=== PATIENT | male | born 1940 | race Caucasian/White ===

== ENCOUNTER 2016-06-08 16:42 | Emergency (ER) | payer MEDICARE, BC ==
[~2016-06-08] VITALS: Ht 182.9 cm; Wt 75.0 kg
[~2016-06-08 16:42] MED LIST: AMIO200 PO; APIX5TAB PO; DIOV80TA4 PO; LORTA5 PO; OXYB5TAB33 PO; PACE200T4 PO; PRIL40CA PO; ROSU20 PO; TAB-TAB PO; TAMS0.4C67 PO
[2016-06-08 16:44] VITALS: BP 101/62; PULSE 72; RESP 16; TEMP 97.6; O2SAT 98
[2016-06-08 16:56] VITALS: BP 132/67; PULSE 68; RESP 18; TEMP 97.8; O2SAT 100
[2016-06-08] MEDS ORDERED: PRIL20CA9 PO (17:08)
[2016-06-08] MEDS ORDERED: DIOV80TA4 PO (17:08)
[2016-06-08] MEDS ORDERED: AMIO200T PO (17:08)
[2016-06-08] MEDS ORDERED: TAMS5CAP PO (17:08)
[2016-06-08] MEDS ORDERED: OXYB5TAB10 PO (17:08)
[2016-06-08] MEDS ORDERED: ROSU40 PO (17:08)
[2016-06-08] MEDS ORDERED: APIX5TAB PO (17:08)
[2016-06-08] MEDS ORDERED: SILVER NITR/POTASSIUM NITRATE APPLICATORS TOPICAL ONE (17:15)
--- NOTE | 2016-06-08 17:21 | PD ---
HPI Chief Complaint: Bleeding Time Seen by Provider: 16:53 Travel History International Travel<30 days: No Contact w/Intl Traveler<30days: No Traveled to known affect area: No History of Present Illness HPI This patient complains of nosebleed. Started at 3:30. It has for the most part stopped spontaneously but has a faint trickle from the left nostril. No bleeding from the right side. No injury. He does take blood thinners for A. fib chronically but no change in dose. Severity is mild. No presacral symptoms. Duration 30 minutes PFSH Past Medical History Hx Anticoagulant Therapy: Yes Arthritis: Yes (BACK) Autoimmune Disease: No Blood Disorders: No Heart Rhythm Problems: Yes Cancer: Yes (MELANOMA-LEFT EAR) Cardiovascular Problems: Yes Chemotherapy: No Chest Pain: Yes Diabetes: No Endocrine: No Gastrointestinal Disorders: Yes GERD: Yes Genitourinary: Yes Immune Disorder: No Implanted Vascular Access Dvce: Yes Musculoskeletal: Yes Neurologic: No Psychiatric: No Reproductive: No Respiratory: Yes (CHRONIC SINUSITIS) Myocardial Infarction: Yes Radiation Therapy: No Thyroid Disease: No Past Surgical History AICD: Yes (MEDTRONIC) Cardiac Surgery: Yes (CARDIAC CATH WITH STENTS-1995; AICD-2005) Ear Surgery: Yes (LEFT EAR MELANOMA EXCISION) Eye Surgery: Yes (ANISHA. CATARACT EXTRACTION WITH IOL's) Genitourinary Surgery: Yes (CYSTO- PROSTATE BIOPSY) Pacemaker: Yes (MEDTRONIC) Other Surgery: Yes Social History Alcohol Use: Yes (OCCAS.) Tobacco Use: No Substance Use: No Allergies-Medications (Allergen,Severity, Reaction): Coded Allergies: No Known Allergies (Verified , 11/07/14) Reported Meds & Prescriptions Reported Meds & Active Scripts Active Cordarone 200 Mg Tab (Amiodarone HCl) 200 Mg Tab 400 Mg PO BID 5 Days Reported Kipling 5/325 (Hydrocodone/Acetaminophen 5/325) 5 mg/325 mg Tab 1 Tab PO Q4H PRN 11/10/2014-Take Kipling 5 one or two tablets every 4-6 hours prn pain Pacerone 200 mg (Amiodarone HCl) 200 Mg Tab 1 Tab PO DAILY 07/06/15 please take amiodarone 400 mg twice a day for 5 days then continue taking amiodarone 200 mg a day Diovan 80 mg (Valsartan) 80 Mg Tab 80 Mg PO BID Eliquis (Apixaban) 5 Mg Tab 5 Mg PO BID Flomax (Tamsulosin HCl) 0.4 Mg Cap 0.4 Mg PO DAILY Crestor (Rosuvastatin Calcium) 20 Mg Tab 40 Mg PO DAILY Multivitamin (Multivitamins) 1 Tab Tab 1 Tab PO DAILY Ditropan (Oxybutynin Chloride) 5 Mg Tab 10 Mg PO DAILY Prilosec 40 mg cap (Omeprazole) 40 Mg Cap 40 Mg PO DAILY Review of Systems General / Constitutional: No: Fever Eyes: No: Visual changes HENT: Positive: Nosebleed, No: Headaches Cardiovascular: No: Chest Pain or Discomfort Respiratory: No: Shortness of Breath Gastrointestinal: No: Abdominal Pain Genitourinary: No: Dysuria Musculoskeletal: No: Pain Skin: No Rash Neurologic: No: Weakness Psychiatric: No: Depression Endocrine: No: Polydipsia Hematologic/Lymphatic: No: Easy Bruising Physical Exam Narrative CARDIOVASCULAR: Regular rate and rhythm without murmur. Extremities showed no edema or varicosities. NECK: Symmetrical appearance, midline trachea. No mass or crepitus. Thyroid without enlargement, tenderness, or mass. SKIN: Inspection shows no rash or ulcers. Palpation shows no induration or nodules. Throat clear Right nares is clear Left side shows a very scant trickle of blood from Kiesselbach's plexus Data Data Last Documented VS Vital Signs Date Time Temp Pulse Resp B/P Pulse Ox O2 Delivery O2 Flow Rate FiO2 06/08/16 17:02 69 20 99 Room Air 06/08/16 16:56 97.8 132/67 Orders Silver Nitrate Applicators (Silver Nitra (06/08/16 17:15) MDM Medical Decision Making Medical Screen Exam Complete: Yes Emergency Medical Condition: Yes Medical Record Reviewed: Yes Differential Diagnosis Anticoagulation, mucosal lesion, nasal trauma Narrative Course I have reviewed the patient's electronic medical record. Procedure note: Reviewed options with patient and he agrees to silver nitrate cautery. I used a total of 7 over nitrate sticks to cauterize the left nares. I rolled each taken sequence over the raw mucosa. There was slight transient irritation but tolerated well. There is no bleeding at all now. The patient has any further bleeding through the night I am advising hold off on his blood thinner in the morning. He has no further bleeding he will continue his blood thinner but will discuss with his physician at nearest opportunity. We discussed the risk benefit analysis involved including increased stroke risk from A. fib without blood thinner versus risk of further bleeding Diagnosis Primary Impression: Arterial epistaxis Additional Impressions: Anticoagulation adequate with anticoagulant therapy Atrial fibrillation Qualified Code: I48.0 - Paroxysmal atrial fibrillation Additional Instructions: The patient was advised to follow up with their physician and return if they worsen. Discuss risks of further bleeding versus higher risk of stroke when blood thinners stopped with prescribing physician Med/Other Pt SpecificInfo: Other Disposition: 01 DISCHARGE HOME Condition: Stable Gabino Santos MD Jun 08, 2016 17:21
[2016-06-08 17:33] VITALS: BP 124/69
== END 2016-06-08 17:46 | disposition home or self-care (01) ==
LOC: NEPC 16:42
DX: R04.0 Epistaxis (principal); J32.9 Chronic sinusitis, unspecified; I48.91 Unspecified atrial fibrillation; Z79.01 Long term (current) use of anticoagulants
CPT/HCPCS: 12011; 30901